=== PATIENT | male | born 1975 ===

== ENCOUNTER → 2016-09-15 | Outpatient (CLI) | payer BC, OTHER ==
--- NOTE | 2016-09-15 14:45 | DIAGNOSTIC IMAGING REPORT ---
LEFT SHOULDER 3 VIEWS CLINICAL HISTORY: Left shoulder pain. FINDINGS: 3 views of left shoulder are obtained. No prior studies are available for comparison at the time of dictation. The skeletal structures are well mineralized. No fracture or dislocation is seen. Mild productive degenerative change is identified at the acromioclavicular joint. The glenohumeral articulation appears preserved. The overlying soft tissues are within normal limits. The imaged left upper lobe lung parenchyma appears clear. IMPRESSION: No acute bony abnormality is seen in the left shoulder. Electronically signed by: Vik Andrade M.D. 09/15/2016 2:44 PM Dictated Date/Time: 09/15/2016 2:43 PM
== END | disposition home or self-care (01) ==
LOC: C.RDSM 14:34
PROVIDERS: ATTEND Physical Medicine & Rehabilitation Sports Medicine
DX: M25.512 Pain in left shoulder (principal)